=== PATIENT | male | born 1985 | race Two or more races ===

== ENCOUNTER 2019-04-23 07:35 | Emergency (ER) | payer OTHER ==
[2019-04-23 08:12] VITALS: BP 120/67; PULSE 63; TEMP 98.3; BMI 23.9
[2019-04-23 08:43] LABS: URINE APPEARANCE CLEAR; URINE BILIRUBIN NEGATIVE (NEGATIVE); URINE COLOR YELLOW; URINE GLUCOSE (UA) NEGATIVE (NEGATIVE); URINE KETONE NEGATIVE (NEGATIVE); URINE LEUK ESTERASE NEGATIVE (NEGATIVE); URINE NITRITE NEGATIVE (NEGATIVE); URINE PROTEIN NEGATIVE (NEGATIVE); URINE UROBILINOGEN 0.2 mg/dL (0.2-1.0)
--- NOTE | 2019-04-23 08:55 | PDOC ---
History of Present Illness - General Chief Complaint: Urinary Problem Stated Complaint: R/O UTI Time Seen by Provider: 04/23/19 08:13 History Source: Patient Exam Limitations: No Limitations Past History - Past Medical History Allergies/Adverse Reactions: Allergies Allergy/AdvReac Type Severity Reaction Status Date / Time No Known Allergies Allergy Verified 04/23/19 08:12 Home Medications: Ambulatory Orders Meclizine HCl [Antivert -] 25 mg PO TID #30 tablet 10/01/15 COPD: No - Immunization History Immunization Up to Date: Yes - Psycho Social/Smoking Cessation Hx Smoking History: Never smoked Have you smoked in the past 12 months: No Information on smoking cessation initiated: No Hx Alcohol Use: No Drug/Substance Use Hx: No Substance Use Type: None *Physical Exam - Vital Signs Last Vital Signs Temp Pulse Resp BP Pulse Ox 98.3 F 63 17 120/67 100 04/23/19 08:08 04/23/19 08:08 04/23/19 08:08 04/23/19 08:08 04/23/19 08:08 - Physical Exam General Appearance: No: Apparent Distress Respiratory/Chest: positive: Lungs Clear, Normal Breath Sounds. negative: Respiratory Distress Cardiovascular: positive: Regular Rhythm, Regular Rate, S1, S2. negative: Murmur Gastrointestinal/Abdominal: positive: Normal Bowel Sounds, Soft. negative: Tender, Distended, Guarding, Rebound Musculoskeletal: negative: CVA Tenderness Neurologic: positive: Alert, Normal Mood/Affect ED Treatment Course - ADDITIONAL ORDERS Additional order review: Laboratory Results 04/23/19 08:16 Urine Color Yellow Urine Appearance Clear Urine pH 7.0 Ur Specific [place] 1.003 L Urine Protein Negative Urine Glucose (UA) Negative Urine Ketones Negative Urine Blood Negative Urine Nitrite Negative Urine Bilirubin Negative Urine Urobilinogen 0.2 Ur Leukocyte Esterase Negative Medical Decision Making - Medical Decision Making 34 y/o M with no sig pmh presents with increased urinary urgency and incomplete voiding x 1 week along with mild dysuria. Denies fever, sob, cp, abd pain, n/v/d , hematuria, penile discharge, rectal pain. Denies prior surgeries. UA negative Will refer to urology for further evaluation 04/23/19 08:53 Discharge - Discharge Information Problems reviewed: Yes Clinical Impression/Diagnosis: Urinary urgency Disposition: HOME - Admission No - Additional Discharge Information Prescription Drug Monitoring Program (I-STOP) results: I-STOP not reviewed - Follow up/Referral Referrals: Karl Olivas MD [Staff Physician] - 2 Days - Patient Discharge Instructions Additional Instructions: Thank you for choosing [facility]. It was a pleasure taking care of you. Your urine was negative You were referred to urologist for further evaluation Return to the Emergency Department if your symptoms worsen or persist, you have fever, severe abdominal pain, vomiting, back pain, blood in urine or other concerning symptoms. - Post Discharge Activity
== END 2019-04-23 09:08 | disposition home or self-care (01) ==
LOC: JERFT 07:35 → JER 07:35 → JERFT 09:08
DX: R39.15 Urgency of urination (principal)
CPT/HCPCS: 81003; 87086; 99281-25